=== PATIENT | male | born 1970 | race Caucasian/White ===

== ENCOUNTER 2017-09-17 06:34 | Day surgery (SDC) | payer OTHER ==
[~2017-09-17 06:34] MED LIST: Lactated Ringers 1,000 ML IV SCH; ceFAZolin 2 GM in Premix Bag 1 BAG IV SCH
[2017-09-17] MEDS ORDERED: fentaNYL 100 MCG/2 ML SDV ONE ×2 (07:09→08:25)
[2017-09-17] MEDS ORDERED: Propofol 200 MG/20 ML SDV ONE (07:09)
[2017-09-17] MEDS ORDERED: Midazolam 1 MG/ML 2 ML SDV ONE (07:10)
[2017-09-17] MEDS ORDERED: Ondansetron 4 MG/2 ML SDV ONE (07:11)
[2017-09-17] MEDS ORDERED: Dexamethasone 4 MG/ML 5 ML MDV ONE (07:11)
[2017-09-17] MEDS ORDERED: Lidocaine 1% 20 ML MDV ONE (07:18)
--- NOTE | 2017-09-17 07:22 | PCM.PREANE ---
Preanesthetic Assessment - Anesthesia/Transfusion/Family Hx Anesthesia History: Prior Anesthesia Without Reaction Other Type of Anesthesia Reaction Comment: "takes me alittle while to wake up" Family History of Anesthesia Reaction: No Transfusion History: No Prior Transfusion(s) - Review of Systems General: No Symptoms Pulmonary: No Symptoms Cardiovascular: No Symptoms Gastrointestinal: No Symptoms Neurological: No Symptoms Other: Reports: None - Physical Assessment NPO Status Date: 09/16/17 NPO Status Time: 18:00 O2 Sat by Pulse Oximetry: 96 Respiratory Rate: 16 Vital Signs: Last Vital Signs Temp 37.0 C 09/17/17 06:40 Pulse 62 09/17/17 06:40 Resp 16 09/17/17 06:40 BP 117/71 09/17/17 06:40 Pulse Ox 96 09/17/17 06:40 Height: 1.78 m Weight: 99.79 kg ASA Class: 1 Mental Status: Alert & Oriented x3 Airway Class: Mallampati = 2 Dentition: Reports: Missing Tooth/Teeth ROM/Head Extension: Full Lungs: Clear to Auscultation, Normal Respiratory Effort Cardiovascular: Regular Rate, Regular Rhythm - Allergies Allergies/Adverse Reactions: Allergies Allergy/AdvReac Type Severity Reaction Status Date / Time No Known Allergies Allergy Verified 09/21/16 01:42 - Anesthesia Plan Pre-Op Medication Ordered: None - Acknowledgements Anesthesia Type Planned: General Anesthesia Pt an Appropriate Candidate for the Planned Anesthesia: Yes Alternatives and Risks of Anesthesia Discussed w Pt/Guardian: Yes Pt/Guardian Understands and Agrees with Anesthesia Plan: Yes PreAnesthesia Questionnaire - Past Health History Medical/Surgical History: Denies Medical/Surgical History HEENT History: Reports: Other (See Below) Other HEENT History: wears glasses/contacts Respiratory History: Reports: Sleep Apnea Other Respiratory History: uses CPAP Gastrointestinal History: Reports: GERD, Hiatal Hernia Endocrine/Metabolic History: Reports: Obesity/BMI 30+ - Infectious Disease History Infectious Disease History: Reports: Chicken Pox, Measles, Mumps, Shingles - Past Surgical History Head Surgeries/Procedures: Reports: None Musculoskeletal Surgical History: Reports: Other (See Below) Other Musculoskeletal Surgeries/Procedures:: wrist arthrodesis by intercarpal fusion - SUBSTANCE USE Smoking Status *Q: Never Smoker Tobacco Use Within Last Twelve Months: Snuff/Dip Second Hand Smoke Exposure: No Days Per Week of Alcohol Use: 2 Number of Drinks Per Day: 3 Total Drinks Per Week: 6 Recreational Drug Use History: No - HOME MEDS Home Medications: Home Meds Ibuprofen 2 tab PO ASDIRECTED PRN 09/11/17 [History] - CURRENT (IN HOUSE) MEDS Current Meds: Current Medications Hydrocodone Bitart/Acetaminophen ([place] 325-5 Mg) 1 - 2 tab PO Q4H PRN PRN Reason: Pain Cefazolin Sodium/Dextrose 2 gm (/ Premix) 50 mls @ 100 mls/hr IV ONCALL RYAN Lactated Ringer's (Ringers, Lactated) 1,000 mls @ 100 mls/hr IV ASDIRECTED RYAN Last Admin: 09/17/17 06:49 Dose: 100 mls/hr Discontinued Medications Dexamethasone (Dexamethasone) Confirm Administered Dose 20 mg .ROUTE .STK-MED ONE Stop: 09/17/17 07:12 Fentanyl (Sublimaze) Confirm Administered Dose 100 mcg .ROUTE .STK-MED ONE Stop: 09/17/17 07:10 Lidocaine HCl (Xylocaine-Mpf 1%) Confirm Administered Dose 5 ml .ROUTE .STK-MED ONE Stop: 09/17/17 07:12 Midazolam HCl (Versed 1 Mg/Ml) Confirm Administered Dose 2 mg .ROUTE .STK-MED ONE Stop: 09/17/17 07:11 Ondansetron HCl (Zofran) Confirm Administered Dose 4 mg .ROUTE .STK-MED ONE Stop: 09/17/17 07:12 Propofol (Diprivan 20 Ml) Confirm Administered Dose 200 mg .ROUTE .STK-MED ONE Stop: 09/17/17 07:10
[2017-09-17] MEDS ORDERED: Acetaminophen/HYDROcodone 325-5 MG Tab PO PRN (08:00)
[2017-09-17] MEDS ORDERED: fentaNYL 100 MCG/2 ML SDV IVPUSH PRN (08:25)
--- NOTE | 2017-09-17 08:47 | PCM.OPNOTE ---
- General Post-Op/Procedure Note Date of Surgery/Procedure: 09/17/17 Operative Procedure(s): L knee scope with PMM Post-Op Diagnosis: L knee med meniscus tear. DJD left knee Anesthesia Technique: General LMA Primary Surgeon: Marylin Villalpando Delivery Table Feeder: Amanda Ventura in mLs: 5 Condition: Good Free Text/Narrative:: #[id number] tt=16 min
[2017-09-17 10:07] VITALS: BP 103/66
--- NOTE | 2017-09-17 10:11 | PCM48HPAN ---
Post Anesthesia Note - EVALUATION WITHIN 48HRS OF ANESTHETIC Vital Signs in Normal Range: Yes Patient Participated in Evaluation: Yes Respiratory Function Stable: Yes Airway Patent: Yes Cardiovascular Function Stable: Yes Hydration Status Stable: Yes Pain Control Satisfactory: Yes Nausea and Vomiting Control Satisfactory: Yes Mental Status Recovered: Yes
--- NOTE | 2017-09-17 10:11 | PCM.POSTAN ---
POST ANESTHESIA ASSESSMENT - MENTAL STATUS Mental Status: Alert, Oriented - RESPIRATORY Respiratory Status: Respiratory Rate WNL, Airway Patent, O2 Saturation Stable - CARDIOVASCULAR CV Status: Pulse Rate WNL, Blood Pressure Stable - GASTROINTESTINAL GI Status: No Symptoms - POST OP HYDRATION Hydration Status: Adequate & Stable
--- NOTE | 2017-09-17 15:04 | OR ---
SURGEON: Marylin Villalpando MD DATE OF PROCEDURE: 09/17/2017 PREOPERATIVE DIAGNOSIS: Left knee medial meniscus tear. POSTOPERATIVE DIAGNOSES: 1. Left knee medial meniscus tear. 2. Left knee degenerative joint disease. PROCEDURE: Left knee arthroscopy with partial medial meniscectomy. BALL WARPER TENDER: Amanda Ventura PA-C. ANESTHESIA: General. ESTIMATED BLOOD LOSS: 5 mL. TOURNIQUET TIME: 16 minutes. COMPLICATIONS: None. DVT PROPHYLAXIS: Not indicated. IMPLANTS USED: None. BRIEF HISTORY: Ang is a 47-year-old male who has had complaint of progressive left knee pain. He had failed conservative treatment. Due to his lack of response to conservative treatment, I did recommend surgical intervention. The risks and goals of the procedure were discussed with the patient and were documented preoperatively. He agreed to proceed. DESCRIPTION OF PROCEDURE: The patient was properly identified and brought to the operating room. He was transferred from the OR cart and placed on the operating room table in a supine position. General anesthesia was administered. After adequate anesthesia was obtained, a well-padded tourniquet was applied to the left lower extremity. The left lower extremity was then prepped in standard fashion using ChloraPrep solution. It was then sterilely draped. A time-out was performed to ensure correct site and procedure. Preoperative antibiotics were given. The surgical site had been marked preoperatively. An Esmarch was used to exsanguinate the left lower extremity and the tourniquet was inflated to 250 mmHg. A lateral portal arthrotomy was established. Blunt trocar and cannula were introduced into the suprapatellar pouch. Camera, inflow, and outflow were assembled. No significant synovitis was noted. The patellofemoral joint was visualized. 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 The trochlear groove showed no significant degenerative findings. The patella appeared to track centrally. I then extended to the lateral and medial gutter. No loose bodies were identified. I then entered the medial compartment. A medial portal arthrotomy was established. A blunt probe was inserted. He was found to have a degenerative tear of the posterior horn of the medial meniscus. Using a combination of biters and shaver, this was resected back to a stable remnant. The posterior horn showed a horizontal split, however, both the upper and lower portion were probed and were found to be stable. The chondral surfaces were then inspected. Grade 2 to grade 3 chondromalacia was noted diffusely along the medial tibial plateau. A chondroplasty of the medial femoral condyle was performed. Extensive grade 3 degenerative findings were noted diffusely across the weightbearing surface of the medial femoral condyle. I then entered the notch. Both the ACL and PCL were visualized and probed and found to be intact. I then entered the lateral compartment. The lateral tibial plateau showed grade 2 to grade 3 chondromalacia diffusely. The lateral femoral condyle showed minor softening. The meniscus was extensively probed and found to be stable. I then re-entered the patellofemoral joint. The patella cartilage was probed. There were found to be some loose pieces. I switched the camera to the medial portal and the shaver was inserted into the lateral portal. I was able to perform a chondroplasty of the patella and remove the loose fragments. Instruments were then removed from the knee. The portal sites were closed with 3-0 nylon. Lidocaine 1% was injected along the portal tracts. Xeroform gauze was placed over the wound and a bulky dressing was applied. Tourniquet was then deflated. He was awakened from his anesthetic and transferred back to the operating room cart. He was brought to recovery room in stable condition. All needle and sponge counts were correct. SONDRA / KENROY /[id number]
== END 2017-09-17 10:10 | disposition home or self-care (01) ==
LOC: MW.SDS 06:34
PROVIDERS: ATTEND Orthopaedic Surgery
DX: S83.242A Other tear of medial meniscus, current injury, left knee, initial encounter (principal); M17.12 Unilateral primary osteoarthritis, left knee; M94.262 Chondromalacia, left knee; G47.30 Sleep apnea, unspecified; K21.9 Gastro-esophageal reflux disease without esophagitis; K44.9 Diaphragmatic hernia without obstruction or gangrene; E66.9 Obesity, unspecified; Z68.31 Body mass index [BMI] 31.0-31.9, adult; Z99.89 Dependence on other enabling machines and devices; Z98.1 Arthrodesis status; F17.290 Nicotine dependence, other tobacco product, uncomplicated
CPT/HCPCS: 29881; J1100; J2250; J2405; J3010; J7120; 01400; 88304; J2704

== ENCOUNTER 2018-10-28 09:14 | Day surgery (SDC) | payer OTHER ==
[~2018-10-28 09:14] MED LIST changes: +Acetaminophen/HYDROcodone 325-5 MG Tab PO PRN
[2018-10-28] MEDS ORDERED: Ondansetron 4 MG/2 ML SDV ONE (09:41)
[2018-10-28] MEDS ORDERED: Lidocaine 2% 5 ML SDV ONE (09:41)
[2018-10-28] MEDS ORDERED: fentaNYL 100 MCG/2 ML SDV ONE (09:42)
[2018-10-28] MEDS ORDERED: Propofol 200 MG/20 ML SDV ONE (09:42)
[2018-10-28] MEDS ORDERED: Midazolam 1 MG/ML 2 ML SDV ONE (09:42)
[2018-10-28] MEDS ORDERED: Lidocaine 1% 20 ML MDV ONE (09:53)
--- NOTE | 2018-10-28 10:04 | PCM.PREANE ---
Preanesthetic Assessment - Anesthesia/Transfusion/Family Hx Anesthesia History: Prior Anesthesia Without Reaction Other Type of Anesthesia Reaction Comment: "takes me alittle while to wake up" Family History of Anesthesia Reaction: No Transfusion History: No Prior Transfusion(s) - Review of Systems General: No Symptoms Pulmonary: No Symptoms Cardiovascular: No Symptoms Gastrointestinal: No Symptoms Neurological: No Symptoms Other: Reports: None - Physical Assessment NPO Status Date: 10/27/18 Height: 1.78 m Weight: 104.326 kg ASA Class: 1 Mental Status: Alert & Oriented x3 Airway Class: Mallampati = 1 Dentition: Reports: Normal Dentition, [place](s) Lungs: Clear to Auscultation, Normal Respiratory Effort Cardiovascular: Regular Rate, Regular Rhythm - Allergies Allergies/Adverse Reactions: Allergies Allergy/AdvReac Type Severity Reaction Status Date / Time No Known Allergies Allergy Verified 10/23/18 09:39 - Blood Blood Available: No - Anesthesia Plan Pre-Op Medication Ordered: None - Acknowledgements Anesthesia Type Planned: General Anesthesia Pt an Appropriate Candidate for the Planned Anesthesia: Yes Alternatives and Risks of Anesthesia Discussed w Pt/Guardian: Yes Pt/Guardian Understands and Agrees with Anesthesia Plan: Yes PreAnesthesia Questionnaire - Past Health History Medical/Surgical History: Denies Medical/Surgical History HEENT History: Reports: Other (See Below) Other HEENT History: wears glasses/contacts Respiratory History: Reports: Sleep Apnea Other Respiratory History: uses CPAP Gastrointestinal History: Reports: GERD, Hiatal Hernia Genitourinary History: Reports: None Musculoskeletal History: Reports: Fracture, Osteoarthritis Endocrine/Metabolic History: Reports: Obesity/BMI 30+ - Infectious Disease History Infectious Disease History: Reports: Chicken Pox, Measles, Mumps, Shingles - Past Surgical History Head Surgeries/Procedures: Reports: None Musculoskeletal Surgical History: Reports: Other (See Below) Other Musculoskeletal Surgeries/Procedures:: wrist arthrodesis by intercarpal fusion, surgery for fx rt big toe - SUBSTANCE USE Smoking Status *Q: Never Smoker Recreational Drug Use History: No - HOME MEDS Home Medications: Home Meds Calcium Carbonate [Tums] 1 tab.chew CHEW ASDIRECTED PRN 10/23/18 [History] - CURRENT (IN HOUSE) MEDS Current Meds: Current Medications Hydrocodone Bitart/Acetaminophen ([place] 325-5 Mg) 1 - 2 tab PO Q4H PRN PRN Reason: Pain Cefazolin Sodium/Dextrose 2 gm (/ Premix) 50 mls @ 100 mls/hr IV ONCALL RYAN Lactated Ringer's (Ringers, Lactated) 1,000 mls @ 100 mls/hr IV ASDIRECTED RYAN Discontinued Medications Fentanyl (Sublimaze) Confirm Administered Dose 100 mcg .ROUTE .STK-MED ONE Stop: 10/28/18 09:43 Lidocaine (Xylocaine-Mpf 2%) Confirm Administered Dose 5 ml .ROUTE .STK-MED ONE Stop: 10/28/18 09:42 Lidocaine HCl (Xylocaine 1%) Confirm Administered Dose 20 ml .ROUTE .STK-MED ONE Stop: 10/28/18 09:54 Midazolam HCl (Versed 1 Mg/Ml) Confirm Administered Dose 2 mg .ROUTE .STK-MED ONE Stop: 10/28/18 09:43 Ondansetron HCl (Zofran) Confirm Administered Dose 4 mg .ROUTE .STK-MED ONE Stop: 10/28/18 09:42 Propofol (Diprivan 20 Ml) Confirm Administered Dose 200 mg .ROUTE .STK-MED ONE Stop: 10/28/18 09:43
[2018-10-28] MEDS ORDERED: fentaNYL 100 MCG/2 ML SDV IVPUSH PRN (10:57)
[2018-10-28] MEDS ORDERED: Ketorolac 30 MG/ML SDV ONE (11:05)
--- NOTE | 2018-10-28 11:11 | PCM.OPNOTE ---
- General Post-Op/Procedure Note Date of Surgery/Procedure: 10/28/18 Operative Procedure(s): L knee arthroscopy with PMM Post-Op Diagnosis: DJD left knee, L knee medial meniscus tear Anesthesia Technique: General LMA Primary Surgeon: Marylin Villalpando Animal Laboratory Helper: Barbara Ching in mLs: 5 Condition: Good Free Text/Narrative:: tt=16 min #[id number]
--- NOTE | 2018-10-28 12:16 | PCM.POSTAN ---
POST ANESTHESIA ASSESSMENT - MENTAL STATUS Mental Status: Alert, Oriented - RESPIRATORY Respiratory Status: Respiratory Rate WNL, Airway Patent, O2 Saturation Stable - CARDIOVASCULAR CV Status: Pulse Rate WNL, Blood Pressure Stable - GASTROINTESTINAL GI Status: No Symptoms - PAIN Pain Score: 0 - POST OP HYDRATION Hydration Status: Adequate & Stable
[2018-10-28 13:20] VITALS: BP 110/68
--- NOTE | 2018-10-28 13:51 | OR ---
SURGEON: Marylin Villalpando MD DATE OF PROCEDURE: 10/28/2018 PREOPERATIVE DIAGNOSES: 1. Left knee medial meniscus tear. 2. Degenerative joint disease, left knee. POSTOPERATIVE DIAGNOSES: 1. Left knee medial meniscus tear. 2. Degenerative joint disease, left knee. PROCEDURE: Left knee arthroscopy with partial medial meniscectomy. VIDEO GAMES MECHANIC: Barbara Ching PA-C ANESTHESIA: General. ESTIMATED BLOOD LOSS: 5 mL. TOURNIQUET TIME: 60 minutes. COMPLICATIONS: None. DVT PROPHYLAXIS: Not indicated. IMPLANTS USED: None. BRIEF HISTORY: Ang is a 48-year-old male who has had complaint of progressive left knee pain. He previously underwent a left knee arthroscopy in August of 2017 and did well following the surgery. He has had a gradual increase in his knee pain after playing basketball. Due to his lack of response to conservative treatment, I did recommend surgical intervention. The risks and goals of the procedure were discussed with the patient and were documented preoperatively. He agreed to proceed. DESCRIPTION OF PROCEDURE: The patient was properly identified and brought to the operating room. He was transferred from the OR cart and placed on the operating table in supine position. General anesthesia was administered. After adequate anesthesia was obtained, a well-padded tourniquet was applied to the left lower extremity. Left lower extremity was then prepped in standard fashion using ChloraPrep solution. It was then sterilely draped. A time-out was performed to ensure correct site and procedure. Preoperative antibiotics were given. The surgical site had been marked preoperatively. An Esmarch was used to exsanguinate the left lower extremity and the tourniquet was inflated to 250 mmHg. A lateral portal arthrotomy was established. Blunt trocar and cannula were introduced into the suprapatellar pouch. Camera, inflow, and outflow were assembled. Suprapatellar pouch showed no significant synovitis. The patellofemoral joint was then visualized. He had a large area of grade 4 chondromalacia along the central portion of the trochlea. Diffuse grade 3 chondromalacia was noted along the undersurface of the patella. The patella appeared to track centrally. I then extended down the lateral and medial gutter. No loose bodies were identified. I then entered the medial compartment. A medial portal arthrotomy was established. A blunt probe was inserted. There was evidence of prior partial medial meniscectomy. The posterior horn was probed. There was a split thickness tear with some instability. Using a combination of biters and shaver, this was resected back to a stable remnant. A thin rim remained along the posterior horn. The posterior attachment appeared intact. The joint surfaces were then inspected. He had extensive grade 3 to grade 4 chondromalacia along the weightbearing surfaces of both the medial femoral condyle and the medial tibial plateau. I then entered the notch. Both the ACL and PCL were visualized and probed and found to be intact. I then entered the lateral compartment. The meniscus was probed. Minor degenerative fraying was noted centrally. He had diffuse grade 3 chondromalacia along the lateral tibial plateau. The lateral femoral condyle showed grade 2 degenerative findings. I then re-entered the patellofemoral joint. A portion of the fat pad was resected as it appeared to be causing some impingement within the patellofemoral joint. A chondroplasty of the trochlea was also performed. Instruments were then removed from the knee. The portal sites were closed with 3-0 nylon. Lidocaine 1% was injected along the portal tracts. Xeroform gauze was placed over the wounds and a bulky dressing was applied. The tourniquet was then deflated. He was awakened from his anesthetic and transferred back to the operating room cart. He was brought to recovery room in stable condition. All needle and sponge counts were correct. SONDRA / KENROY /[id number]
--- NOTE | 2018-10-28 14:29 | PCM48HPAN ---
Post Anesthesia Note - EVALUATION WITHIN 48HRS OF ANESTHETIC Vital Signs in Normal Range: Yes Patient Participated in Evaluation: Yes Respiratory Function Stable: Yes Airway Patent: Yes Cardiovascular Function Stable: Yes Hydration Status Stable: Yes Pain Control Satisfactory: Yes Nausea and Vomiting Control Satisfactory: Yes Mental Status Recovered: Yes Resp Rate: 16
== END 2018-10-28 13:00 | disposition home or self-care (01) ==
LOC: MW.SDS 09:14
PROVIDERS: ATTEND Orthopaedic Surgery
DX: S83.242A Other tear of medial meniscus, current injury, left knee, initial encounter (principal); M17.12 Unilateral primary osteoarthritis, left knee; M94.262 Chondromalacia, left knee; E66.9 Obesity, unspecified; Z68.32 Body mass index [BMI] 32.0-32.9, adult; X58.XXXA Exposure to other specified factors, initial encounter
CPT/HCPCS: 29881; J1885; J2250; J2405; J2704; J3010; J7120; 88304

== ENCOUNTER 2021-06-17 08:45 | Day surgery (SDC) | payer OTHER ==
[~2021-06-17 08:45] MED LIST changes: +Lactated Ringers 1,000 ML IV SCH; -propofoL 50 ML ONE
--- NOTE | 2021-06-17 10:52 | PCM.PREANE ---
Preanesthetic Assessment - Anesthesia/Transfusion/Family Hx Anesthesia History: Prior Anesthesia Without Reaction Other Type of Anesthesia Reaction Comment: "takes me alittle while to wake up" Transfusion History: No Prior Transfusion(s) - Review of Systems General: No Symptoms Pulmonary: No Symptoms Cardiovascular: No Symptoms Gastrointestinal: No Symptoms Neurological: No Symptoms Other: Reports: None - Physical Assessment NPO Status Date: 06/17/21 NPO Status Time: 00:00 Vital Signs: Last Vital Signs Temp 97.5 F 06/17/21 09:15 Pulse 79 06/17/21 09:15 Resp 16 06/17/21 09:15 BP 119/75 06/17/21 09:15 Pulse Ox 95 06/17/21 09:15 Height: 5 ft 10 in Weight: 215 lb ASA Class: 2 Mental Status: Alert & Oriented x3 Airway Class: Mallampati = 2 Dentition: Reports: Normal Dentition Thyro-Mental Finger Breadths: 3 Mouth Opening Finger Breadths: 3 ROM/Head Extension: Full Lungs: Clear to Auscultation, Normal Respiratory Effort Cardiovascular: Regular Rate, Regular Rhythm - Allergies Allergies/Adverse Reactions: Allergies Allergy/AdvReac Type Severity Reaction Status Date / Time No Known Allergies Allergy Verified 06/13/21 11:58 - Acknowledgements Anesthesia Type Planned: General Anesthesia Pt an Appropriate Candidate for the Planned Anesthesia: Yes Alternatives and Risks of Anesthesia Discussed w Pt/Guardian: Yes Pt/Guardian Understands and Agrees with Anesthesia Plan: Yes PreAnesthesia Questionnaire - Past Health History Medical/Surgical History: Denies Medical/Surgical History HEENT History: Reports: Other (See Below) Other HEENT History: wears contacts Cardiovascular History: Reports: None Respiratory History: Reports: Sleep Apnea Other Respiratory History: uses CPAP every night Gastrointestinal History: Reports: None Genitourinary History: Reports: None Musculoskeletal History: Reports: None Neurological History: Reports: None Psychiatric History: Reports: None Endocrine/Metabolic History: Reports: None Hematologic History: Reports: None Immunologic History: Reports: None Oncologic (Cancer) History: Reports: None Dermatologic History: Reports: None - Infectious Disease History Infectious Disease History: Reports: Chicken Pox, Measles, Mumps, Shingles - Past Surgical History Head Surgeries/Procedures: Reports: None HEENT Surgical History: Reports: None Cardiovascular Surgical History: Reports: None GI Surgical History: Reports: None Male Surgical History: Reports: None Endocrine Surgical History: Reports: None Neurological Surgical History: Reports: None Musculoskeletal Surgical History: Reports: Arthroscopic Knee, ORIF, Other (See Below) Other Musculoskeletal Surgeries/Procedures:: ORIF right foot (has screws), fusion left wrist (has hardware) Oncologic Surgical History: Reports: None Dermatological Surgical History: Reports: None - SUBSTANCE USE Tobacco Use Status *Q: Former Tobacco User Tobacco Use Within Last Twelve Months: No Recreational Drug Use History: No - HOME MEDS Home Medications: Home Meds . [No Known Home Meds] 06/13/21 [History] - CURRENT (IN HOUSE) MEDS Current Meds: Current Medications Lactated Ringer's (Ringers, Lactated) 1,000 mls @ 125 mls/hr IV ASDIRECTED [facility] Last Admin: 06/17/21 09:19 Dose: 125 mls/hr Documented by:
--- NOTE | 2021-06-17 11:41 | PCM.OPNOTE ---
- General Post-Op/Procedure Note Date of Surgery/Procedure: 06/17/21 Operative Procedure(s): Colonoscopy Pre Op Diagnosis: Desire for colorectal cancer screening. Post-Op Diagnosis: No evidence of neoplasia. Anesthesia Technique: MAC (ASA II) Primary Surgeon: Rosalio Armando Condition: Good Free Text/Narrative:: DICTATION [id number] CPT CODE [id number]
[2021-06-17] MEDS ORDERED: Lactated Ringers 1,000 ML IV SCH (11:45)
[2021-06-17 12:11] VITALS: BP 100/57; PULSE 66
--- NOTE | 2021-06-17 12:50 | PCM.POSTAN ---
POST ANESTHESIA ASSESSMENT - MENTAL STATUS Mental Status: Alert, Oriented - VITAL SIGNS Vital Signs: Last Vital Signs Temp 97.2 F 06/17/21 12:03 Pulse 66 06/17/21 12:03 Resp 14 06/17/21 12:03 BP 100/57 L 06/17/21 12:03 Pulse Ox 95 06/17/21 12:03 - RESPIRATORY Respiratory Status: Respiratory Rate WNL, Airway Patent, O2 Saturation Stable - CARDIOVASCULAR CV Status: Pulse Rate WNL, Blood Pressure Stable - GASTROINTESTINAL GI Status: No Symptoms - POST OP HYDRATION Hydration Status: Adequate & Stable
--- NOTE | 2021-06-17 12:50 | PCM48HPAN ---
Post Anesthesia Note - EVALUATION WITHIN 48HRS OF ANESTHETIC Vital Signs in Normal Range: Yes Patient Participated in Evaluation: Yes Respiratory Function Stable: Yes Airway Patent: Yes Cardiovascular Function Stable: Yes Hydration Status Stable: Yes Pain Control Satisfactory: Yes Nausea and Vomiting Control Satisfactory: Yes Mental Status Recovered: Yes Vital Signs: Last Vital Signs Temp 97.2 F 06/17/21 12:03 Pulse 66 06/17/21 12:03 Resp 14 06/17/21 12:03 BP 100/57 L 06/17/21 12:03 Pulse Ox 95 06/17/21 12:03
--- NOTE | 2021-06-17 15:25 | OR ---
SURGEON: Rosalio Armando M.D. DATE OF PROCEDURE: 06/17/2021 OPERATION PERFORMED: Colonoscopy. PRIMARY SURGEON: Rsoalio Armando M.D. ANESTHESIA: MAC. ASA CLASSIFICATION: II. PREOPERATIVE DIAGNOSIS: Desire for colorectal cancer screening. POSTOPERATIVE DIAGNOSIS: No evidence of neoplasia. DESCRIPTION OF PROCEDURE: The patient was taken to the endoscopy room and positioned on the endoscopy table in the left lateral decubitus position. Time-out was called for appropriate identification of the patient and procedure. Monitored anesthesia care was provided. The colonoscope was inserted into the rectum and advanced without difficulty to the cecum. The cecum was identified by internal landmarks and external pressure. The colonoscope was retroflexed to visualize the ascending colon from below and then straightened and slowly withdrawn. The cecum, ascending colon, hepatic flexure, transverse colon, splenic flexure, descending colon, sigmoid colon, and rectum were very well visualized. No tumors, polyps, diverticula, or angiodysplastic changes were noted anywhere in the lower gastrointestinal tract. Once the colonoscope was withdrawn to the rectum, it was retroflexed to visualize the anal orifice from above. No tumors or polyps were seen, and there were no acute hemorrhoidal changes. The colonoscope was then straightened, the rectum aspirated, and the colonoscope removed. The patient tolerated the procedure well and was taken to recovery room in stable condition. BROCK / KENROY /[id number]
== END 2021-06-17 12:29 | disposition home or self-care (01) ==
LOC: MW.SDS 08:45
PROVIDERS: ATTEND Surgery
DX: Z12.11 Encounter for screening for malignant neoplasm of colon (principal); M17.12 Unilateral primary osteoarthritis, left knee
CPT/HCPCS: 45378; J7120; 00812

== ENCOUNTER → 2021-06-17 | Day surgery (SDC) | payer OTHER ==
[~2021-06-17] MED LIST changes: -Acetaminophen/HYDROcodone 325-5 MG Tab PO PRN; -Lactated Ringers 1,000 ML IV SCH; -ceFAZolin 2 GM in Premix Bag 1 BAG IV SCH; +propofoL 50 ML ONE
== END ==
LOC: MW.SDS 09:03 → MERGE 09:03
PROVIDERS: ATTEND Surgery
DX: Z12.11 Encounter for screening for malignant neoplasm of colon (principal); M17.12 Unilateral primary osteoarthritis, left knee; F10.10 Alcohol abuse, uncomplicated; Z98.890 Other specified postprocedural states; Z87.891 Personal history of nicotine dependence
CPT/HCPCS: J2704